=== PATIENT | female | born 1975 | race Caucasian/White ===

== ENCOUNTER 2017-06-23 11:32 | Emergency (ER) | payer OTHER ==
[2017-06-23 12:07] VITALS: BP 104/67
[2017-06-23] MEDS ORDERED: Sodium Chloride 0.9% 10 ML Syringe FLUSH PRN (12:49)
[2017-06-23] MEDS ORDERED: Acetaminophen 325 MG Tab PO ONE (12:50)
[2017-06-23] MEDS ORDERED: Sodium Chloride 0.9% 1,000 ML IV ONE ×2 (12:50→13:47)
[2017-06-23] MEDS ORDERED: methylPREDNISolone Sodium Succinate 125 MG/2 ML SDV IVPUSH ONE (12:52)
[2017-06-23 13:06] LABS: CHLORIDE,CL 102 mmol/L (101-111); SODIUM,NA 137 mmol/L (135-145)
[2017-06-23] MEDS ORDERED: cefTRIAXone 1 GM in Sodium Chloride 0.9% 50 ML IV ONE (13:27)
[2017-06-23] MEDS ORDERED: Potassium Chloride 10 MEQ Tab.ER PO ONE (13:42)
[2017-06-23] MEDS ORDERED: Ondansetron 4 MG/2 ML SDV IV ONE (14:28)
--- NOTE | 2017-06-23 15:00 | EDM.PDOC ---
Scribed by Alissa Guerra 06/23/17 [id number] for Vaibhav Loera MD ED HPI GENERAL MEDICAL PROBLEM - General Chief Complaint: Fever Stated Complaint: SICK HI FEVER [id number] Time Seen by Provider: 06/23/17 12:05 Source of Information: Reports: Patient, RN, RN Notes Reviewed History Limitations: Reports: No Limitations - History of Present Illness INITIAL COMMENTS - FREE TEXT/NARRATIVE: Onset 06/20/17, of fatigue, then fever, with generalized body aches and occipital headache. 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 [No Known Home Meds] 06/23/17 [History] Social & Family History - Family History Family Medical History: Noncontributory ED ROS GENERAL - Review of Systems Review Of Systems: ROS reveals no pertinent complaints other than HPI. ED EXAM, GENERAL - Physical Exam Exam: See Below Exam Limited By: No Limitations General Appearance: Alert, WD/WN, No Apparent Distress, Other (uncomfortable appearing.) Eye Exam: Bilateral Eye: Normal Inspection Ears: Normal External Exam, Normal Canal, Hearing Grossly Normal, Normal TMs Nose: Normal Inspection, Normal Mucosa, No Blood Throat/Mouth: Normal Lips, Normal Teeth, Normal Gums, Normal Voice, No Airway Compromise, Other (dry oral membranes.) Head: Atraumatic, Normocephalic Neck: Normal Inspection, Supple, Non-Tender, Full Range of Motion, Other (no nuchal rigidity.) Respiratory/Chest: No Respiratory Distress, Lungs Clear, Normal Breath Sounds, No Accessory Muscle Use, Chest Non-Tender Cardiovascular: Regular Rate, Rhythm, Tachycardia GI/Abdominal: Normal Bowel Sounds, Soft, Non-Tender, No Organomegaly, No Distention, No Abnormal Bruit, No Mass (Female) Exam: Deferred Rectal (Female) Exam: Deferred Back Exam: Normal Inspection, Full Range of Motion, NT Extremities: Normal Inspection, Normal Range of Motion, Non-Tender, No Pedal Edema, Normal Capillary Refill. No: Joint Swelling, Aldo's Sign, Leg Pain, Increased Warmth, Pallor, Redness Neurological: Alert, Oriented, CN II-XII Intact, Normal Cognition, Normal Gait, Normal Reflexes, No Motor/Sensory Deficits Psychiatric: Normal Affect, Normal Mood Skin Exam: Warm, Dry, Intact, Normal Color, No Rash Lymphatic: No Adenopathy Course - Vital Signs Last Recorded V/S: Last Vital Signs Temp 39.6 C H 06/23/17 12:04 Pulse 101 H 06/23/17 12:04 Resp 20 06/23/17 12:04 BP 104/67 06/23/17 12:04 Pulse Ox 99 06/23/17 12:04 - Orders/Labs/Meds Orders: Active Orders 24 hr Category Date Time Status Peripheral IV Care [RC] . DIRECTED Care 06/23/17 12:49 Active CULTURE BLOOD [] Stat Lab 06/23/17 12:23 Received CULTURE BLOOD [] Stat Lab 06/23/17 13:08 Received CULTURE STREP A CONFIRMATION [] Stat Lab 06/23/17 12:15 Results STREP SCRN A RAPID W CULT CONF [] Stat Lab 06/23/17 12:15 Results [facility]IRUS IGM [REF] Stat Lab 06/23/17 12:23 Received Sodium Chloride 0.9% [Saline Flush] Med 06/23/17 12:49 Active 10 ml FLUSH ASDIRECTED PRN Blood Culture x2 Reflex Set [OM.PC] Stat Oth 06/23/17 12:50 Ordered Peripheral IV Insertion Adult [OM.PC] Stat Oth 06/23/17 12:49 Ordered Medication Orders Sodium Chloride (Saline Flush) 10 ml FLUSH ASDIRECTED PRN PRN Reason: Keep Vein Open Labs: Laboratory Tests 06/23/17 06/23/17 06/23/17 Range/Units 12:13 12:13 12:23 WBC 15.4 H (5.0-10.0) 10^3/uL RBC 4.67 (4.2-5.4) 10^6/uL Hgb 14.1 (12.0-16.0) g/dL Hct 42.0 (37.0-47.0) % MCV 89.9 (80-100) fL MCH 30.2 (27.0-34.0) pg MCHC 33.6 (33.0-35.0) g/dL Plt Count 306 (150-450) 10^3/uL Neut % (Auto) 86.4 H (42.2-75.2) % Lymph % (Auto) 7.7 L (20.5-50.1) % Cedar % (Auto) 5.8 (2-8) % Eos % (Auto) 0.0 L (1.0-3.0) % Baso % (Auto) 0.1 (0.0-1.0) % Sodium (135-145) mmol/L Potassium (3.6-5.0) mmol/L Chloride (101-111) mmol/L Carbon Dioxide (21.0-31.0) mmol/L Anion Gap BUN (7-18) mg/dL Creatinine (0.6-1.3) mg/dL Est Cr Clr Drug Dosing mL/min Estimated GFR (MDRD) BUN/Creatinine Ratio Glucose (74-105) mg/dL Lactic Acid (0.5-2.2) mmol/L Calcium (8.4-10.2) mg/dl Total Bilirubin (0.2-1.0) mg/dL AST (10-42) IU/L ALT (10-60) IU/L Alkaline Phosphatase (42-121) IU/L C-Reactive Protein (0.0-1.3) mg/dL Total Protein (6.7-8.2) g/dl Albumin (3.2-5.5) g/dl Globulin Albumin/Globulin Ratio Urine Color Dark yellow (YELLOW) Urine Appearance Slightly cloudy (CLEAR) Urine pH 5.5 (5.0-9.0) Ur Specific [place] 1.020 (1.005-1.030) Urine Protein 30 H (NEGATIVE) Urine Glucose (UA) Negative (NEGATIVE) Urine Ketones >=160 H (NEGATIVE) Urine Occult Blood Negative (NEGATIVE) Urine Nitrite Negative (NEGATIVE) Urine Bilirubin Moderate H (NEGATIVE) Urine Urobilinogen 0.2 (0.2-1.0) mg/dL Ur Leukocyte Esterase Negative (NEGATIVE) Urine RBC 0-5 /HPF Urine WBC 0-5 (0-5/HPF) /HPF Ur Epithelial Cells Many H /HPF Amorphous Sediment Few (0/HPF) /HPF Urine Bacteria Rare (0-FEW/HPF) /HPF Hyaline Casts Few H /LPF Urine Mucus Many H /LPF Urine HCG, Qual Negative 06/23/17 06/23/17 06/23/17 Range/Units 12:23 12:23 12:23 WBC (5.0-10.0) 10^3/uL RBC (4.2-5.4) 10^6/uL Hgb (12.0-16.0) g/dL Hct (37.0-47.0) % MCV (80-100) fL MCH (27.0-34.0) pg MCHC (33.0-35.0) g/dL Plt Count (150-450) 10^3/uL Neut % (Auto) (42.2-75.2) % Lymph % (Auto) (20.5-50.1) % Cedar % (Auto) (2-8) % Eos % (Auto) (1.0-3.0) % Baso % (Auto) (0.0-1.0) % Sodium 137 (135-145) mmol/L Potassium 3.4 L (3.6-5.0) mmol/L Chloride 102 (101-111) mmol/L Carbon Dioxide 20.0 L (21.0-31.0) mmol/L Anion Gap 18.4 BUN 15 (7-18) mg/dL Creatinine 1.0 (0.6-1.3) mg/dL Est Cr Clr Drug Dosing 60.62 mL/min Estimated GFR (MDRD) > 60 BUN/Creatinine Ratio 15.00 Glucose 104 (74-105) mg/dL Lactic Acid 2.1 (0.5-2.2) mmol/L Calcium 9.3 (8.4-10.2) mg/dl Total Bilirubin 0.8 (0.2-1.0) mg/dL AST 21 (10-42) IU/L ALT 17 (10-60) IU/L Alkaline Phosphatase 39 L (42-121) IU/L C-Reactive Protein 2.5 H (0.0-1.3) mg/dL Total Protein 7.5 (6.7-8.2) g/dl Albumin 3.9 (3.2-5.5) g/dl Globulin 3.6 Albumin/Globulin Ratio 1.08 Urine Color (YELLOW) Urine Appearance (CLEAR) Urine pH (5.0-9.0) Ur Specific [place] (1.005-1.030) Urine Protein (NEGATIVE) Urine Glucose (UA) (NEGATIVE) Urine Ketones (NEGATIVE) Urine Occult Blood (NEGATIVE) Urine Nitrite (NEGATIVE) Urine Bilirubin (NEGATIVE) Urine Urobilinogen (0.2-1.0) mg/dL Ur Leukocyte Esterase (NEGATIVE) Urine RBC /HPF Urine WBC (0-5/HPF) /HPF Ur Epithelial Cells /HPF Amorphous Sediment (0/HPF) /HPF Urine Bacteria (0-FEW/HPF) /HPF Hyaline Casts /LPF Urine Mucus /LPF Urine HCG, Qual Rapid strep: Negative. Meds: Medications Generic Name Dose Route Start Last Admin Trade Name Freq PRN Reason Stop Dose Admin Sodium Chloride 10 ml 06/23/17 12:49 Saline Flush FLUSH ASDIRECTED PRN Keep Vein Open Discontinued Medications Generic Name Dose Route Start Last Admin Trade Name Freq PRN Reason Stop Dose Admin Acetaminophen 650 mg 06/23/17 12:50 06/23/17 14:23 Tylenol PO 06/23/17 12:51 650 mg NOW ONE Administration Sodium Chloride 1,000 mls @ 999 mls/hr 06/23/17 12:50 06/23/17 14:22 Normal Saline IV 06/23/17 13:50 999 mls/hr .BOLUS ONE Administration Ceftriaxone Sodium 1 gm/ 50 mls @ 100 mls/hr 06/23/17 13:27 06/23/17 14:24 Sodium Chloride IV 06/23/17 13:56 100 mls/hr ONETIME ONE Administration Sodium Chloride 1,000 mls @ 999 mls/hr 06/23/17 13:47 Normal Saline IV 06/23/17 14:47 .BOLUS ONE Methylprednisolone Sodium Succinate 125 mg 06/23/17 12:52 06/23/17 14:22 Solu-Medrol IVPUSH 06/23/17 12:53 125 mg ONETIME ONE Administration Ondansetron HCl 4 mg 06/23/17 14:28 06/23/17 14:36 Zofran IV 06/23/17 14:29 4 mg ONETIME ONE Administration Potassium Chloride 40 meq 06/23/17 13:42 06/23/17 14:23 Klor-Con 10 PO 06/23/17 13:43 40 meq ONETIME ONE Administration Departure - Departure Time of Disposition: 15:20 Disposition: Home, Self-Care 01 Condition: Fair Clinical Impression: Viral syndrome, Dehydration Fever Qualifiers: Fever type: due to other condition Qualified Code(s): R50.81 - Fever presenting with conditions classified elsewhere - Discharge Information Instructions: Dehydration, Adult, [id number] Forms: ED Department Discharge Additional Instructions: Drink plenty of fluids. Tylenol 500mg by mouth every 4 hours as needed for fever, do not exceed 3000mg in 24 hours. Ibuprofen 200mg, take 3 tablets by mouth with food every 6 hours as needed for fever or body aches. Do not exceed 400mg in 24 hours. Follow up in clinic in 3 to 5 days if not improved. Return to ER if worse at any time or any new symptoms develop. - My Orders Last 24 Hours: My Active Orders 06/23/17 12:15 CULTURE STREP A CONFIRMATION [RM] Stat STREP SCRN A RAPID W CULT CONF [RM] Stat 06/23/17 12:23 CULTURE BLOOD [BC] Stat [facility]IRUS IGM [REF] Stat 06/23/17 12:49 Peripheral IV Care [RC] . DIRECTED Sodium Chloride 0.9% [Saline Flush] 10 ml FLUSH ASDIRECTED PRN Peripheral IV Insertion Adult [OM.PC] Stat 06/23/17 12:50 Blood Culture x2 Reflex Set [OM.PC] Stat 06/23/17 13:08 CULTURE BLOOD [BC] Stat - Assessment/Plan Last 24 Hours: My Active Orders 06/23/17 12:15 CULTURE STREP A CONFIRMATION [RM] Stat STREP SCRN A RAPID W CULT CONF [RM] Stat 06/23/17 12:23 CULTURE BLOOD [BC] Stat [facility]IR[facility] IGM [REF] Stat 06/23/17 12:49 Peripheral IV Care [RC] . DIRECTED Sodium Chloride 0.9% [Saline Flush] 10 ml FLUSH ASDIRECTED PRN Peripheral IV Insertion Adult [OM.PC] Stat 06/23/17 12:50 Blood Culture x2 Reflex Set [OM.PC] Stat 06/23/17 13:08 CULTURE BLOOD [BC] Stat I have read and agree with the documentation that has been completed regarding this visit. By signing this record, I attest that the documentation was completed in my physical presence and is an accurate record of the encounter.
== END 2017-06-23 17:09 | disposition home or self-care (01) ==
LOC: DL.ED 11:32
DX: B34.9 Viral infection, unspecified (principal); E86.0 Dehydration; R50.81 Fever presenting with conditions classified elsewhere
CPT/HCPCS: 36415; 80053; 81001; 81025; 83605; 85025; 86140; 86788; 87040; 87081; 87430; 96361; 96374; 96375; 99283; A9270; J0696; J2405; J2930; J7030; J7050